=== PATIENT | male | born 1970 | race Caucasian/White ===

== ENCOUNTER 2018-07-30 20:06 | Emergency (ER) | payer SELFPAY ==
[~2018-07-30] VITALS: Ht 170.2 cm; Wt 83.9 kg
--- NOTE | 2018-07-30 20:06 | NUR ---
PT GINA GARAY, PREBOOK. TAKEN TO CHAIR E
[2018-07-30 20:09] VITALS: BP 150/119
--- NOTE | 2018-07-30 20:19 | NUR ---
PT BIB [facility] S/P PRE-BOOK HX HTN. PT DENIES N/V/D; SKIN IS INTACT, PINK/WARM/DRY; AAOX4, PERRL, WITH EVEN AND STEADY GAIT; LUNGS CLEAR BL, BREATHING UNLABORED; HR EVEN AND REGULAR, BL PERIPHERAL PULSES PRESENT; BS ACTIVE X4, NO TENDERNESS TO PALPATION, PT DENIES ANY FEVER, CP, SOB, OR COUGH AT THIS TIME; PT STATES 0/10 PAIN AT THIS TIME; VSS; PATIENT POSITIONED FOR COMFORT; HOB ELEVATED; BEDRAILS UP X2; BED DOWN.
--- NOTE | 2018-07-30 20:24 | NUR ---
Dr. Kemp evaluating patient
[2018-07-30 20:35] VITALS: BP 149/100
--- NOTE | 2018-07-30 20:36 | NUR ---
Patient discharged with v/s stable. Written and verbal after care instructions given and explained. Patient alert, oriented and verbalized understanding of instructions. Police with steady gait. All questions addressed prior to discharge. ID band removed. Patient advised to follow up with PMD.NO Rx given. Patient educated on indication of medication including possible reaction and side effects. Opportunity to ask questions provided and answered.
== END 2018-07-30 20:36 ==
LOC: MED 20:06
DX: I10 Essential (primary) hypertension (principal); F10.129 Alcohol abuse with intoxication, unspecified; Z59.0 Homelessness; Y90.9 Presence of alcohol in blood, level not specified
CPT/HCPCS: 99283

== ENCOUNTER 2018-09-07 19:04 | Emergency (ER) | payer SELFPAY ==
[~2018-09-07] VITALS: Ht 167.6 cm; Wt 72.6 kg
--- NOTE | 2018-09-07 19:04 | NUR ---
PT [facility] TO ER BED 12
--- NOTE | 2018-09-07 19:04 | NUR ---
PATIENT BROUGHT IN BY [facility] FOR ETOH. [facility] STAFF LEFT W/O GIVING REPORT, DOES NOT RECALL PREVIOUS ACTIVITY OR WHERE HE WAS PRIOR TO ACTIVITY, ALERT TO NAME, TIME, NOT TO PLACE, NOT TO SITUTION, PERRLA, ETOH. C/O KNOTT , 02/18 , DOES NOT RADIATE, HX OF DM, BS 110. PATIENT IS RUNNING SINUS TACH., HR 110, HOB ELEVATED, ON 2L OF O2, 2 SIDERAILS UP, WAITING FOR EVALUATION BY ED MD. WILL CONTINUE TO MONITOR.
[2018-09-07 19:05] VITALS: BP 137/75
[2018-09-07 21:13] LABS: BASOPHILS % (AUTO) 0.8 % (0.0-2.0); EOSINOPHILS % (AUTO) 1.4 % (0.0-4.0); HEMATOCRIT 29.7 % (36-52); HEMOGLOBIN 9.8 g/dL (12.0-18.0); LYMPHOCYTES # (AUTO) 1.4 K/uL (2.0-11.5); MEAN CORPUSCULAR HEMOGLOBIN 28 pg (27-31); MEAN CORPUSCULAR HGB CONC 33 g/dL (33-37); MEAN CORPUSCULAR VOLUME 83.2 fL (80-94); MONOCYTES # (AUTO) 0.4 K/uL (0.8-1.0); MONOCYTES % (AUTO) 12.6 % (1.7-9.3); NEUTROPHILS # (AUTO) 1.4 K/uL (1.8-7.7); NEUTROPHILS % (AUTO) 43.2 % (42.2-75.2); PLATELET COUNT (AUTO) 106 K/uL (140-450); RED BLOOD CELL COUNT(AUTO) 3.57 MIL/uL (4.20-6.10); RED CELL DISTRIBUTION WIDTH 22.8 % (11.6-13.7); WHITE BLOOD COUNT (AUTO) 3.3 K/uL (4.8-10.8)
[2018-09-07 21:25] LABS: ANION GAP 13.1 (8-16); CARBON DIOXIDE 29.6 mmol/L (21-32); CREATININE 0.8 mg/dL (0.7-1.3); POTASSIUM 3.7 mmol/L (3.5-5.1)
--- NOTE | 2018-09-07 21:30 | NUR ---
SECURITY CALLED. PT WANDERING INTO OTHER PT'S ROOMS. SLURRED SPEECH. DR LUGO INFORMED. CONTINUE TO MONITOR.
[2018-09-07 21:32] LABS: ALBUMIN 3.6 g/dL (3.4-5.0); TOTAL BILIRUBIN 0.5 mg/dL (0.0-1.0)
[2018-09-07] MEDS ORDERED: LORazepam 2 MG/ML VIAL IVP ONE (21:50)
[2018-09-07] MEDS ORDERED: LORazepam 2 MG/ML VIAL ONE (21:59)
--- NOTE | 2018-09-07 22:00 | NUR ---
SECURITY CALLED. PT WANDERING INTO OTHER PT'S ROOMS. SLURRED SPEECH. DR LUGO INFORMED. CONTINUE TO MONITOR.
--- NOTE | 2018-09-07 22:00 | NUR ---
PT CONTINUE TO WANDER. NON-COMPLIANT. VSS. PT DIRECTED INTO BED. STAFF CONINTUING TO MONITOR.
--- NOTE | 2018-09-07 22:48 | NUR ---
PT PLACED IN [address] LUGO VERBAL ORDER. PT CONTINUES TO WANDER. DANGER TO SELF AND OTHERS. PT DID NOT RESIST. CIRCULATION CHECKED BEFORE AND AFTER RESTRAINT PLACEMENT. CONTINUE TO MONITOR.
--- NOTE | 2018-09-07 23:00 | NUR ---
PT MOVED TO BED 1
--- NOTE | 2018-09-07 23:01 | NUR ---
ASSUMED CARE FOR PT. PT IN 4 POINT RESTRAINTS. RADIAL PULSES WNL BL. DORSAL PEDIAL PULSES WNL BL. WILL CONTINUE TO MONITOR. BEHAVIORAL-VIOLENT RESTRAINT SECLUSION FLOW SHEET IN CHART.
--- NOTE | 2018-09-07 23:01 | NUR ---
REPORT GIVEN TO BALTAZAR RODARTE.
[2018-09-07] MEDS ORDERED: NACL 0.9% 1,000 ML IV ONE (23:40)
[2018-09-07] MEDS ORDERED: HALOPERIDOL IM 5 MG/ML VIAL IM ONE (23:45)
--- NOTE | 2018-09-08 00:50 | NUR ---
PT OUT OF RESTRAINTS AT THIS TIME. PT IS ASLEEP. PT ON FORESTER SILVICULTURE. PT AROUSABLE TO NAME. WILL CONTINUE TO MONITOR. Addendum: 09/08/18 at 0403 by [email or web address] RESTRAINTS DISCONTINUED AT THIS TIME. PT IS ASLEEP. PT ON FORESTER SILVICULTURE. PT AROUSABLE TO NAME. WILL CONTINUE TO MONITOR.
--- NOTE | 2018-09-08 03:08 | NUR ---
PT SLEEPING AT THIS TIME. BREATHING EQUAL AND UNLABORED. VSS. WILL CONTINUE TO MONITOR.
--- NOTE | 2018-09-08 04:37 | NUR ---
PT SLEEPING AT THIS TIME. BREATHING EQUAL AND UNLABORED. VSS. WILL CONTINUE TO MONITOR.
--- NOTE | 2018-09-08 05:45 | NUR ---
PT SLEEPING AT THIS TIME. BREATHING EQUAL AND UNLABORED. VSS. WILL CONTINUE TO MONITOR.
--- NOTE | 2018-09-08 06:20 | NUR ---
PT BACK TO BED AFTER AMBULATED TO BR. COMFORT MEASURES PROVIDED. SAFETY PRECAUTIONS IN PLACE.
--- NOTE | 2018-09-08 07:17 | NUR ---
Pt report given to CAYDEN Coreas. Transfer of care at this time.
--- NOTE | 2018-09-08 07:18 | NUR ---
pt is sleeping with vss, breathing even and unlabored at this time, will cont to monitor
[2018-09-08 08:10] VITALS: BP 138/61
--- NOTE | 2018-09-08 08:10 | NUR ---
Patient discharged with v/s stable. Written and verbal after care instructions given and explained. Patient verbalized understanding. Ambulatory with steady gait. All questions addressed prior to discharge. Advised to follow up with PMD.
== END 2018-09-08 08:10 | disposition home or self-care (01) ==
LOC: MED 19:04
DX: F10.129 Alcohol abuse with intoxication, unspecified (principal); E11.9 Type 2 diabetes mellitus without complications; I10 Essential (primary) hypertension; Y90.8 Blood alcohol level of 240 mg/100 ml or more
CPT/HCPCS: 36415; 80053; 85025; 96374; 96375; 99283; G0482; J1630; J2060; J7030

== ENCOUNTER 2018-11-26 21:20 | Emergency (ER) | payer SELFPAY ==
[~2018-11-26] VITALS: Ht 167.6 cm; Wt 77.1 kg
[2018-11-26 21:20] VITALS: BP 163/90
--- NOTE | 2018-11-26 21:35 | NUR ---
PT BROUGHT IN BY AMBULANCE TO ER BED 07
--- NOTE | 2018-11-26 21:40 | NUR ---
PT BROUGHT IN BY EMS FOR GENERALIZED WEAKNESS. PER EMS, PATIENT WAS FOUND IN AN APARTMENT COMPLEX ASKING FOR HELP. PATIENT IS HOMELESS. PATIENT REPORTS CONSUMING ETOH TODAY BUT IS UNABLE TO RECALL WHAT KIND/ AMOUNT. PATIENT IS DROWSY BUT IS ABLE TO ANSWER QUESTIONS AND FOLLOW COMMANDS. NO S/S OF DISTRESS AT THIS TIME. PATIENT DENIES PAIN. BED LOWERED WITH SIDE RAILS UP.
[2018-11-26 22:21] LABS: BASOPHILS % (AUTO) 0.8 % (0.0-2.0); EOSINOPHILS % (AUTO) 0.6 % (0.0-4.0); HEMATOCRIT 36.2 % (36-52); HEMOGLOBIN 11.7 g/dL (12.0-18.0); LYMPHOCYTES # (AUTO) 1.7 K/uL (2.0-11.5); LYMPHOCYTES % (AUTO) 31.4 % (20.5-51.1); MEAN CORPUSCULAR HEMOGLOBIN 29 pg (27-31); MEAN CORPUSCULAR HGB CONC 33 g/dL (33-37); MEAN CORPUSCULAR VOLUME 88.3 fL (80-94); MONOCYTES # (AUTO) 0.3 K/uL (0.8-1.0); MONOCYTES % (AUTO) 6.3 % (1.7-9.3); NEUTROPHILS # (AUTO) 3.2 K/uL (1.8-7.7); NEUTROPHILS % (AUTO) 60.9 % (42.2-75.2); PLATELET COUNT (AUTO) 128 K/uL (140-450); RED CELL DISTRIBUTION WIDTH 17.3 % (11.6-13.7); WHITE BLOOD COUNT (AUTO) 5.3 K/uL (4.8-10.8)
[2018-11-26 22:31] LABS: ANION GAP 16.9 (8-16); CARBON DIOXIDE 24.8 mmol/L (21-32); CREATININE 0.7 mg/dL (0.7-1.3); POTASSIUM 3.7 mmol/L (3.5-5.1)
[2018-11-26 22:37] LABS: ALBUMIN 4.2 g/dL (3.4-5.0); TOTAL BILIRUBIN 1.3 mg/dL (0.0-1.0)
[2018-11-27] MEDS ORDERED: NACL 0.9% 1,000 ML IV ONE (05:40)
[2018-11-27 06:36] VITALS: BP 123/83
--- NOTE | 2018-11-27 06:37 | NUR ---
Patient discharged with v/s stable. Written and verbal after care instructions given and explained. Patient verbalized understanding. Ambulatory with steady gait. All questions addressed prior to discharge. Advised to follow up with PMD. IV line discontinued. Homeless resources list, bus pass, and food provided
== END 2018-11-27 06:36 | disposition home or self-care (01) ==
LOC: MED 21:20
DX: F10.129 Alcohol abuse with intoxication, unspecified (principal); R53.1 Weakness; E11.9 Type 2 diabetes mellitus without complications; I10 Essential (primary) hypertension; Y90.9 Presence of alcohol in blood, level not specified
CPT/HCPCS: 36415; 80053; 83690; 85025; 99283; J7030

== ENCOUNTER 2019-01-01 18:40 | Emergency (ER) | payer SELFPAY ==
[~2019-01-01] VITALS: Ht 167.6 cm; Wt 85.7 kg
--- NOTE | 2019-01-01 18:40 | NUR ---
Patient BIBA BLS, transferred to bed 8. RN evaluating patient at bedside.
[2019-01-01 18:47] VITALS: BP 139/94
[2019-01-01] MEDS ORDERED: NACL 0.9% 1,000 ML IV ONE (19:10)
[2019-01-01] MEDS ORDERED: PANTOPRAZOLE 40 MG INJ VIAL IVP ONE (19:10)
--- NOTE | 2019-01-01 19:16 | NUR ---
PATIENT LEFT WITHOUT BEING SEEN BY DR. DIETZ. NO FURTHER CARE PROVIDED FOR PATIENT.
== END 2019-01-01 19:16 | disposition left against medical advice (07) ==
LOC: MED 18:40
DX: F10.129 Alcohol abuse with intoxication, unspecified (principal); Z53.21 Procedure and treatment not carried out due to patient leaving prior to being seen by health care provider